=== PATIENT | female | born 1990 | race Caucasian/White ===

== ENCOUNTER 2017-05-15 10:50 | Emergency (ER) | payer OTHER ==
[~2017-05-15] VITALS: Ht 160 cm; Wt 72.6 kg
[~2017-05-15 10:50] MED LIST: PREN-159 PO
[2017-05-15 11:05] VITALS: BP 135/70
--- NOTE | 2017-05-15 12:14 | NUR ---
Patient to bed 11.
--- NOTE | 2017-05-15 12:16 | NUR ---
PT PRESENTS TO ER FOR EVALUATION OF RIGHT ARM/ELBOW PAIN X5 DAYS. PT DENIES ANY FALL OR TRAUMA, STATES SHE WAS WORKING OUT 5 DAYS AGO AND IT'S BEEN HURTING SINCE THEN.
[2017-05-15 12:45] VITALS: BP 122/72
--- NOTE | 2017-05-15 12:45 | NUR ---
Patient discharged with v/s stable. Written and verbal after care instructions given and explained. Patient verbalized understanding. Ambulatory with steady gait. All questions addressed prior to discharge. Advised to follow up with PMD.
== END 2017-05-15 12:45 | disposition home or self-care (01) ==
LOC: MED 10:50
DX: S53.401A Unspecified sprain of right elbow, initial encounter (principal); S63.501A Unspecified sprain of right wrist, initial encounter; Z79.899 Other long term (current) drug therapy; X58.XXXA Exposure to other specified factors, initial encounter; Y93.89 Activity, other specified; Y92.89 Other specified places as the place of occurrence of the external cause; Y99.8 Other external cause status
CPT/HCPCS: 73080; 73090; 99284